=== PATIENT | female | born 1935 | race Caucasian/White ===

== ENCOUNTER 2020-06-29 20:20 | Outpatient (CLI) | payer MEDICARE | END 2020-06-29 23:59 | disposition short-term general hospital (02) | LOC: EMS 20:20 | DX: R53.83 Other fatigue (principal); R53.1 Weakness; R42 Dizziness and giddiness | CPT/HCPCS: A0425; A0429 ==

== ENCOUNTER 2023-05-09 08:44 | Outpatient (CLI) | payer MEDICARE | END 2023-05-09 23:59 | disposition short-term general hospital (02) | LOC: EMS 08:44 | DX: R47.81 Slurred speech (principal) | CPT/HCPCS: A0425; A0429; A0888 ==

== ENCOUNTER → 2023-05-16 | Outpatient (CLI) | payer MEDICARE | LOC: PC 08:00 | PROVIDERS: ATTEND Nurse Practitioner Gerontology | DX: Z53.9 Procedure and treatment not carried out, unspecified reason (principal) | CPT/HCPCS: 99345 ==

== ENCOUNTER 2023-05-27 08:00 | Outpatient (CLI) | payer MEDICARE | END 2023-05-27 23:59 | disposition home or self-care (01) | LOC: PC 08:00 | PROVIDERS: ATTEND Nurse Practitioner Gerontology | DX: Z51.5 Encounter for palliative care (principal); N39.0 Urinary tract infection, site not specified; F01.B11 Vascular dementia, moderate, with agitation; E66.9 Obesity, unspecified; Z74.01 Bed confinement status; M17.11 Unilateral primary osteoarthritis, right knee; G89.4 Chronic pain syndrome; I89.0 Lymphedema, not elsewhere classified; I48.91 Unspecified atrial fibrillation; Z95.0 Presence of cardiac pacemaker; I50.30 Unspecified diastolic (congestive) heart failure; F32.9 Major depressive disorder, single episode, unspecified; F41.9 Anxiety disorder, unspecified; I69.392 Facial weakness following cerebral infarction | CPT/HCPCS: 99350 ==

== ENCOUNTER 2023-05-31 19:52 | Outpatient (CLI) | payer MEDICARE | END 2023-05-31 23:59 | disposition short-term general hospital (02) | LOC: EMS 19:52 | DX: R53.1 Weakness (principal); R41.82 Altered mental status, unspecified | CPT/HCPCS: A0425; A0429; A0888 ==

== ENCOUNTER 2023-06-05 08:00 | Outpatient (CLI) | payer MEDICARE | END 2023-06-05 23:59 | disposition home or self-care (01) | LOC: PC 08:00 | PROVIDERS: ATTEND Nurse Practitioner Gerontology | DX: Z51.5 Encounter for palliative care (principal); F01.A4 Vascular dementia, mild, with anxiety; I13.0 Hypertensive heart and chronic kidney disease with heart failure and stage 1 through stage 4 chronic kidney disease, or unspecified chronic kidney disease; I50.32 Chronic diastolic (congestive) heart failure; N18.30 Chronic kidney disease, stage 3 unspecified; M10.9 Gout, unspecified; F32.1 Major depressive disorder, single episode, moderate; Z71.89 Other specified counseling; Z74.01 Bed confinement status; I48.91 Unspecified atrial fibrillation; Z95.0 Presence of cardiac pacemaker; I69.392 Facial weakness following cerebral infarction; I69.398 Other sequelae of cerebral infarction; F41.9 Anxiety disorder, unspecified; E66.9 Obesity, unspecified; I89.0 Lymphedema, not elsewhere classified; R53.1 Weakness | CPT/HCPCS: 99350 ==

== ENCOUNTER 2023-06-09 08:00 | Outpatient (CLI) | payer MEDICARE | END 2023-06-09 23:59 | disposition home or self-care (01) | LOC: PC 08:00 | PROVIDERS: ATTEND Nurse Practitioner Gerontology | DX: Z51.5 Encounter for palliative care (principal); I50.32 Chronic diastolic (congestive) heart failure | CPT/HCPCS: 99426; 99427 ==

== ENCOUNTER 2023-06-12 08:00 | Outpatient (CLI) | payer MEDICARE | END 2023-06-12 23:59 | disposition home or self-care (01) | LOC: PC 08:00 | PROVIDERS: ATTEND Nurse Practitioner Gerontology | DX: Z51.5 Encounter for palliative care (principal); F01.B11 Vascular dementia, moderate, with agitation; I89.0 Lymphedema, not elsewhere classified; R53.1 Weakness; Z74.01 Bed confinement status; I49.5 Sick sinus syndrome; Z95.0 Presence of cardiac pacemaker; I69.392 Facial weakness following cerebral infarction; F32.1 Major depressive disorder, single episode, moderate; H02.106 Unspecified ectropion of left eye, unspecified eyelid; I13.0 Hypertensive heart and chronic kidney disease with heart failure and stage 1 through stage 4 chronic kidney disease, or unspecified chronic kidney disease; I50.20 Unspecified systolic (congestive) heart failure; N18.4 Chronic kidney disease, stage 4 (severe) | CPT/HCPCS: 99350 ==

== ENCOUNTER 2023-07-09 08:00 | Outpatient (CLI) | payer MEDICARE | END 2023-07-09 23:59 | disposition home or self-care (01) | LOC: PC 08:00 | PROVIDERS: ATTEND Nurse Practitioner Gerontology | DX: Z51.5 Encounter for palliative care (principal); F01.B11 Vascular dementia, moderate, with agitation; H02.106 Unspecified ectropion of left eye, unspecified eyelid; E66.9 Obesity, unspecified; Z74.01 Bed confinement status; I89.0 Lymphedema, not elsewhere classified; I69.392 Facial weakness following cerebral infarction; I49.5 Sick sinus syndrome; Z95.0 Presence of cardiac pacemaker; I13.0 Hypertensive heart and chronic kidney disease with heart failure and stage 1 through stage 4 chronic kidney disease, or unspecified chronic kidney disease; I50.30 Unspecified diastolic (congestive) heart failure; N18.4 Chronic kidney disease, stage 4 (severe); F32.9 Major depressive disorder, single episode, unspecified; F41.9 Anxiety disorder, unspecified | CPT/HCPCS: 99350 ==

== ENCOUNTER 2023-08-14 15:01 | Outpatient (CLI) | payer MEDICARE ==
[2023-08-14 15:13] LABS: BILIRUBIN,URINE NEGATIVE (NEGATIVE); GLUCOSE, URINE (UA) NEGATIVE (NEGATIVE); KETONES,URINE (UA) NEGATIVE (NEGATIVE); LEUKOCYTE ESTERASE, URINE LARGE (NEGATIVE); NITRITE,URINE NEGATIVE (NEGATIVE); OCCULT BLOOD,URINE MODERATE (NEGATIVE); PROTEIN,URINE NEGATIVE (NEGATIVE); UROBILINOGEN,URINE 0.2 (NORMAL) E.U./dL (NORMAL)
[2023-08-14 15:15] LABS: CLARITY,URINE HAZY (CLEAR)
[2023-08-14 15:32] LABS: WBC,URINE >25 /HPF (0-5)
[2023-08-14 15:33] LABS: BACTERIA,URINE Moderate /HPF (None Seen); SQUAMOUS EPITHELIAL CELL,UR FEW Squamous (<= Few)
== END 2023-08-14 15:02 | disposition home or self-care (01) ==
LOC: LAB.R 15:01
PROVIDERS: ATTEND Nurse Practitioner Gerontology
DX: N18.30 Chronic kidney disease, stage 3 unspecified (principal)
CPT/HCPCS: 81001; 87086

== ENCOUNTER 2023-08-27 14:00 | Outpatient (CLI) | payer MEDICARE | END 2023-08-27 23:59 | disposition home or self-care (01) | LOC: PC 14:00 | PROVIDERS: ATTEND Nurse Practitioner Gerontology | DX: Z51.5 Encounter for palliative care (principal); I69.351 Hemiplegia and hemiparesis following cerebral infarction affecting right dominant side; I13.0 Hypertensive heart and chronic kidney disease with heart failure and stage 1 through stage 4 chronic kidney disease, or unspecified chronic kidney disease; I27.20 Pulmonary hypertension, unspecified; I50.32 Chronic diastolic (congestive) heart failure; N18.30 Chronic kidney disease, stage 3 unspecified; F01.B2 Vascular dementia, moderate, with psychotic disturbance; F01.B4 Vascular dementia, moderate, with anxiety; Z79.899 Other long term (current) drug therapy; Z79.01 Long term (current) use of anticoagulants; I89.0 Lymphedema, not elsewhere classified; M15.9 Polyosteoarthritis, unspecified; I49.5 Sick sinus syndrome; I48.91 Unspecified atrial fibrillation; H57.9 Unspecified disorder of eye and adnexa; Z95.0 Presence of cardiac pacemaker; Z74.01 Bed confinement status | CPT/HCPCS: 99349 ==

== ENCOUNTER 2023-09-08 08:00 | Outpatient (CLI) | payer MEDICARE | END 2023-09-08 23:59 | disposition home or self-care (01) | LOC: PC 08:00 | PROVIDERS: ATTEND Nurse Practitioner Gerontology | DX: Z51.5 Encounter for palliative care (principal); I50.32 Chronic diastolic (congestive) heart failure | CPT/HCPCS: 99426 ==

== ENCOUNTER 2023-11-12 14:30 | Outpatient (CLI) | payer MEDICARE | END 2023-11-12 23:59 | disposition home or self-care (01) | LOC: PC 14:30 | PROVIDERS: ATTEND Nurse Practitioner Gerontology | DX: Z51.5 Encounter for palliative care (principal); F01.B2 Vascular dementia, moderate, with psychotic disturbance; F01.B4 Vascular dementia, moderate, with anxiety; F01.B3 Vascular dementia, moderate, with mood disturbance; H02.89 Other specified disorders of eyelid; F32.1 Major depressive disorder, single episode, moderate; I50.32 Chronic diastolic (congestive) heart failure; K58.0 Irritable bowel syndrome with diarrhea; I89.0 Lymphedema, not elsewhere classified; I49.5 Sick sinus syndrome; I48.91 Unspecified atrial fibrillation; I13.10 Hypertensive heart and chronic kidney disease without heart failure, with stage 1 through stage 4 chronic kidney disease, or unspecified chronic kidney disease; N18.30 Chronic kidney disease, stage 3 unspecified; I69.359 Hemiplegia and hemiparesis following cerebral infarction affecting unspecified side; Z71.89 Other specified counseling; Z74.01 Bed confinement status; Z95.0 Presence of cardiac pacemaker | CPT/HCPCS: 99349 ==